=== PATIENT | male | born 1985 | race Two or more races ===

== ENCOUNTER 2016-05-31 22:44 | Emergency (ER) | payer SELFPAY ==
--- NOTE | ~2016-05-31 | CR116 ---
[facility] A Service of [facility] & [facility] RADIOLOGY TEXT RESULTS PATIENT: KAREN THOMAS LOCATION: CFTX : 85 UNIT #: [id number] AGE: [address]: Allyson Mohamud APRN SEX: M ORDER DR: [id number] [facility] [address]. [place], [place] [address] [id number] E MR#: [id number] Acc #: [id number] NAME: KAREN THOMAS : 1985 SEX: M STUDY DATE/TIME: 05/31/2016 20:58 UNIT: [facility] ROOM: STUDY DESCRIPTION: CR Finger 2 View Thumb Lt Attending Physician: Allyson Mohamud A.P.R.N. Ordering Physician: Allyson Mohamud A.P.R.N. Primary Care Physician: Primary Care Physician No MEDICAL IMAGING REPORT This report is preliminary unless electronic signature is present EXAM Left thumb 3 views 05/31/2016 HISTORY Left thumb pain and bruising for 3 days, hit thumb with a hammer 3 days ago. FINDINGS 3 views of the left thumb demonstrate no fracture. The bones are normal mineralized. There is no soft tissue abnormality. IMPRESSION Negative left thumb. Dictated by... Roderick Sandhu M.D. THIS IS AN ELECTRONICALLY VERIFIED REPORT Roderick Sandhu M.D. at 06/01/2016 2:56 PM KRT/jessica TD: 06/01/2016 08:43 JOB #: [id number] MEDICAL IMAGING REPORT COPY
[~2016-05-31 22:44] MED LIST: IBUPROFEN PO
== END 2016-05-31 22:55 | disposition home or self-care (01) ==
LOC: CFTX 22:44
DX: S60.012A Contusion of left thumb without damage to nail, initial encounter (principal); F17.210 Nicotine dependence, cigarettes, uncomplicated; Z23 Encounter for immunization; W22.8XXA Striking against or struck by other objects, initial encounter
CPT/HCPCS: 73140; 90471; 90715; 99283